=== PATIENT | female | born 1970 | race Caucasian/White ===

== ENCOUNTER 2016-05-23 15:49 | Outpatient (CLI) | payer OTHER ==
--- NOTE | 2016-05-26 14:14 | Magnetic Resonance Report ---
MRI CERVICAL SPINE WITHOUT AND WITH CONTRAST: 05/23/16 CLINICAL: Multiple sclerosis. TECHNIQUE: Sagittal T1,T2 and STIR and axial gradient T2* sequences plus sagittal and axial postcontrast T1 fat sat sequences on a 1.5 Jaki magnet. 12 cc of Multihance was injected intravenously for the contrast portion of the exam and so was obtained prior to administration of contrast. FINDINGS:Normal vertebral body height, alignment and disc spaces. Normal marrow signal. Decreased T2 disc signal at C4-5 and C5-6 and T1-2. The cerebellar tonsils are in normal position. The upper spinal cord is relatively large from the brainstem through C4. However, the overall signal of the cord is normal. A focal left lateral hyperintense cord lesion at C3 is identified on both axial gradient echo and STIR sequences. A smaller similar lesion in the posterolateral left cord at C6. Neither of these lesions enhance and there are no enhancing lesions of the cord. Mild degenerative disc disease at C5-6 with a small posterior central disc-osteophyte. The rest discs are intact. No significant neural foraminal stenosis. IMPRESSION: 1. Nonenhancing T2 hyperintense cord lesions on the left side at C3 and C6 are consistent with multiple sclerosis. 2. No enhancing lesions. 3. The spinal cord is relatively large to the level of C4 but no cord edema or mass. 3. Mild degenerative disc disease with a small central posterior disc-osteophyte at C5-6.
--- NOTE | 2016-05-26 14:37 | Magnetic Resonance Report ---
MRI THORACIC SPINE WITHOUT AND WITH CONTRAST: 05/23/16 CLINICAL: Multiple sclerosis. TECHNIQUE: Sagittal and axial T1 and T2, and sagittal STIR sequences plus sagittal and axial T1 fat-sat postcontrast sequences on a 1.5 Jaki magnet. FINDINGS: Normal vertebral body height, alignment and disk spaces. Normal marrow signal and normal disc signal. The spinal cord is normal size with normal overall signal. A T2 hyperintense midline posterior cord lesion is identified at T8-T9. It measures 5 mm transverse dimension by 24.5 mm craniocaudal dimension. The lesion demonstrates no enhancement postcontrast. No other lesions are identified. The conus medullaris is normal and terminates at L1-2. The disks are intact at all levels. No disk protrusions or bulges. IMPRESSION: 1. A solitary midline posterior cord lesion consistent with an MS lesion at T8-T9 measuring 5 mm x 24.5 mm. 2. No enhancing lesion.
== END 2016-05-23 15:50 | disposition home or self-care (01) ==
LOC: MRI 15:49
PROVIDERS: ATTEND Psychiatry & Neurology Neurology
DX: G35 Multiple sclerosis (principal)
CPT/HCPCS: 72156; 72157; A9577

== ENCOUNTER 2017-03-24 00:05 | Emergency (ER) | payer OTHER ==
[2017-03-24 02:41] VITALS: BP 154/93
== END 2017-03-24 03:00 | disposition left against medical advice (07) ==
LOC: ED 00:05
DX: R51 Headache (principal); Z53.21 Procedure and treatment not carried out due to patient leaving prior to being seen by health care provider